=== PATIENT | female | born 1950 | race Caucasian/White ===

== ENCOUNTER 2016-11-02 02:25 | Emergency (ER) | payer OTHER, MEDICARE ==
[2016-11-02 03:08] LABS: BASOPHIL 0.3 % (0-2); HCT 37.9 % (37.0-47.0); LYMPHOCYTE 47.1 % (15-48); MCH 31.6 pg (25.0-31.0); MCHC 34.3 g/dL (32.0-36.0); MCV 92.2 fL (78.0-100.0); MONOCYTE 8.3 % (0-12); MPV 10.2 fL (6.0-9.5); NEUTROPHIL 42.3 % (41-80); PLT 261 K/uL (150-400); RBC 4.11 M/uL (4.20-5.40); RDW 13.9 % (11.5-14.0); WBC 9.1 K/uL (4.0-10.5)
[2016-11-02 03:25] LABS: BILIRUBIN - TOTAL 0.3 mg/dL (0.1-1.0); CREATININE 0.6 mg/dL (0.5-1.0); GLOBULIN (CALCULATION) 2.6 g/dL (2.2-4.2); POTASSIUM 3.9 mmol/L (3.5-5.1); TOTAL PROTEIN 6.6 g/dL (6.4-8.3)
== END 2016-11-02 10:20 | disposition home or self-care (01) ==
LOC: FER 02:25 → FMS 14:24
PROVIDERS: Emergency Medicine
DX: N13.2 Hydronephrosis with renal and ureteral calculous obstruction (principal); K21.9 Gastro-esophageal reflux disease without esophagitis; Z86.711 Personal history of pulmonary embolism; Z79.01 Long term (current) use of anticoagulants; Z79.899 Other long term (current) drug therapy; Z90.49 Acquired absence of other specified parts of digestive tract; Z90.710 Acquired absence of both cervix and uterus
CPT/HCPCS: 36415; 80053; 82150; 83690; 85025; J1170; J2175; J2270; J2405; Q9967